=== PATIENT | female | born 1945 | race Two or more races ===

== ENCOUNTER 2024-05-21 20:37 | Emergency (ER) | payer OTHER ==
[~2024-05-21] VITALS: Ht 167.6 cm; Wt 74.8 kg
[2024-05-21] MEDS ORDERED: PRAVASTATIN SOD20 MG PO (20:49)
[2024-05-21] MEDS ORDERED: COZAAR25 MG PO (20:49)
[2024-05-21] MEDS ORDERED: PIPERACILLIN/TAZOBACTAM SODIUM 3.375 GM VIAL IV ONE ×2 (22:30→22:39)
[2024-05-21] MEDS ORDERED: FAMOtidine 10 MG/ML (4ML VIAL) IV ONE (22:30)
[2024-05-21] MEDS ORDERED: FAMOTIDINE/PF 20 MG/2 ML VIAL ONE (22:39)
[2024-05-21 23:08] LABS: HEMATOCRIT 38.6 % (36.0-45.00); HEMOGLOBIN 12.8 g/dL (12.0-15.00); MEAN CELL VOLUME 85.1 fL (80.00-100.00); MEAN CORPUSCULAR HEMOGLOBIN 28.1 pg (27.00-32.0); MEAN CORPUSCULAR HGB CONC 33.1 g/dl (32.0-36.0); PLATELET COUNT 234 K/uL (150-450); RED BLOOD COUNT 4.54 M/uL (4.00-6.00); RED CELL DISTRIBUTION WIDTH 14.4 % (11.5-14.5)
[2024-05-21 23:17] LABS: ERYTHROCYTE SEDIMENTATION RATE 47 mm/hr
[2024-05-21] MEDS ORDERED: PEPCID AC20 MG PO (23:48)
[2024-05-21] MEDS ORDERED: CEPHALEXIN500 M1 PO (23:48)
[2024-05-21] MEDS ORDERED: BACTRIM DS TAB1 EACH PO (23:48)
== END 2024-05-21 23:55 | disposition home or self-care (01) ==
LOC: ER 20:40
PROVIDERS: General Practice
DX: M79.674 Pain in right toe(s) (principal); I10 Essential (primary) hypertension; M77.31 Calcaneal spur, right foot; M85.871 Other specified disorders of bone density and structure, right ankle and foot
CPT/HCPCS: 36415; 73630; 96365; 99283; J2543; J3490